=== PATIENT | male | born 1950 | race Two or more races ===

== ENCOUNTER 2016-12-17 22:36 | Inpatient (IN) | payer SELFPAY ==
[~2016-12-17] VITALS: Ht 175.3 cm; Wt 109.8 kg
[~2016-12-17 22:36] MED LIST: CALC-30 PO; IBUP1POW8; MULTCHW3 OR
[2016-12-17 23:21] LABS: Basophils # (auto) 0.1 uL; Basophils % (auto) 0.9 % (0.0-2.0); Eosinophils # (auto) 0.1 uL; Eosinophils % (auto) 1.3 % (0.0-7.0); Hematocrit 44.4 % (41.0-53.0); Lymphocytes % (auto) 27.7 % (10.0-50.0); Mean Corpuscular Hemoglobin 30.2 pg (28.0-32.0); Mean Corpuscular Hgb Conc. 33.8 g/dL (32.0-36.0); Mean Corpuscular Volume 89.6 fL (80.0-100.0); Monocytes # (auto) 0.5 uL; Monocytes % (auto) 7.3 % (0.0-12.0); Neutrophils # (auto) 4.6 uL; Neutrophils % (auto) 62.8 % (37.0-80.0); Nucleated Red Blood Cells % 0.1 %; Platelet Count (auto) 257 10^3/uL (140-450); Red Blood Cells 4.96 10^6/uL (4.5-5.90); Red Cell Distribution Width 14.8 % (11.8-14.3); White Blood Cell 7.3 10^3/uL (4.4-10.8)
[2016-12-17 23:44] LABS: Albumin 3.9 g/dL (3.4-5.0); BUN/Creatinine Ratio 16.1; Bilirubin, Total 0.4 mg/dL (0.2-1.0); Magnesium 2.4 mg/dL (1.6-2.6); Potassium 4.3 mmol/L (3.5-5.1); Total Protein 7.8 g/dL (6.4-8.2)
[2016-12-18] MEDS ORDERED: ENOXAPARIN SOD 100 MG/1 ML SYRINGE SC ONE (05:30)
[2016-12-18 06:32] LABS: Urine Bacteria NONE SEEN /hpf (None Seen); Urine Blood Negative /uL (Negative); Urine Specific Gravity 1.007 (1.001-1.035); Urine WBC <1 /hpf (0 - 3)
[2016-12-18] MEDS ORDERED: SODIUM CHLORIDE 0.9% 1,000 ML IV ONE (07:24)
[2016-12-18] MEDS ORDERED: ONDANSETRON HCL 4 MG/2 ML VIAL IV ONE (07:30)
[2016-12-18] MEDS ORDERED: MORPHINE SULFATE 10 MG/ML INJ 1ML SDV IV ONE (07:30)
[2016-12-18] MEDS ORDERED: ASPirin 325 MG TAB PO ONE (07:30)
[2016-12-18] MEDS ORDERED: LORazepam 0.5 MG TAB PO PRN (09:15)
[2016-12-18] MEDS ORDERED: HYDROcodone-ACET 5/325MG TAB PO PRN (09:15)
[2016-12-18] MEDS ORDERED: TEMAZEPAM 15 MG CAP PO PRN (09:15)
[2016-12-18] MEDS ORDERED: NITROGLYCERIN 0.4 MG SL TAB SL PRN (09:15)
[2016-12-18] MEDS ORDERED: ACETAMINOPHEN 500 MG TAB PO PRN (09:15)
[2016-12-18] MEDS ORDERED: PROMETHAZINE HCL 25 MG/ML 1ML IV PRN (09:15)
[2016-12-18] MEDS ORDERED: LACTULOSE 20Gm/30ML SOLN PO PRN (09:15)
[2016-12-18] MEDS ORDERED: MORPHINE SULFATE 10 MG/ML INJ 1ML SDV IV PRN ×2 (09:15)
[2016-12-18] MEDS: SODIUM CHLORIDE 0.9% 1,000 ML IV SCH ×2 (09:59→22:49)
[2016-12-18] MEDS: PANTOPRAZOLE 40 MG TAB PO SCH (10:45)
[2016-12-18] MEDS: METOPROLOL TARTRATE 25 MG TAB PO SCH ×2 (10:48→22:48)
[2016-12-18] MEDS: NITROGLYCERIN 0.2MG/HR TOPICAL PATCH TD SCH (10:48)
[2016-12-18 11:04] VITALS: BP 156/94
[2016-12-18] MEDS ORDERED: ASPI81CH43 PO (11:27)
[2016-12-18] MEDS ORDERED: OMEG1CAP59 PO (11:28)
[2016-12-18 13:42] LABS: CRP High Sensitivity 0.34 mg/dL (< 0.3)
[2016-12-18 16:35] VITALS: BP 99/57
[2016-12-18 22:00] VITALS: BP 115/65
[2016-12-18] MEDS: ATORVASTATIN 20 MG TAB PO SCH (22:48)
[2016-12-19 05:00] VITALS: BP 107/56
[2016-12-19 06:34] LABS: Cholesterol 195 mg/dL (< 200); HDL Cholesterol 34 mg/dL (40-59); LDL Cholesterol 137 mg/dL (< 100); Triglycerides 184 mg/dL (< 150)
[2016-12-19 09:00] VITALS: BP 109/56
[2016-12-19] MEDS: NITROGLYCERIN 0.2MG/HR TOPICAL PATCH TD SCH (10:00)
[2016-12-19] MEDS: ASPirin 81 mg TAB PO SCH (10:52)
[2016-12-19] MEDS: ENOXAPARIN SOD 40 MG/0.4 ML SYRINGE SC SCH (10:53)
[2016-12-19] MEDS: METOPROLOL TARTRATE 25 MG TAB PO SCH ×2 (10:53→22:09)
[2016-12-19] MEDS: PANTOPRAZOLE 40 MG TAB PO SCH (10:53)
[2016-12-19 13:00] VITALS: BP 118/70
[2016-12-19 17:00] VITALS: BP 149/83
[2016-12-19] MEDS: SODIUM CHLORIDE 0.9% 1,000 ML IV SCH (17:43)
[2016-12-19 22:00] VITALS: BP 122/69
[2016-12-19] MEDS: ATORVASTATIN 20 MG TAB PO SCH (22:09)
[2016-12-20] MEDS: SODIUM CHLORIDE 0.9% 1,000 ML IV SCH (01:01)
[2016-12-20 05:25] VITALS: BP 133/77
[2016-12-20 08:06] VITALS: BP 133/78
[2016-12-20] MEDS: NITROGLYCERIN 0.2MG/HR TOPICAL PATCH TD SCH (10:00)
[2016-12-20] MEDS: METOPROLOL TARTRATE 25 MG TAB PO SCH ×2 (10:03→21:38)
[2016-12-20] MEDS: ASPirin 81 mg TAB PO SCH (10:03)
[2016-12-20] MEDS: ENOXAPARIN SOD 40 MG/0.4 ML SYRINGE SC SCH (10:03)
[2016-12-20] MEDS: PANTOPRAZOLE 40 MG TAB PO SCH (10:04)
[2016-12-20 12:37] VITALS: BP 148/84
[2016-12-20] MEDS ORDERED: PANTOPRAZOLE 40 MG TAB PO ONE (14:15)
[2016-12-20 16:48] VITALS: BP 143/75
[2016-12-20] MEDS: ATORVASTATIN 20 MG TAB PO SCH (21:37)
[2016-12-20 22:00] VITALS: BP 133/78
[2016-12-21 05:00] VITALS: BP 121/74
[2016-12-21] MEDS ORDERED: ADENOSINE 92 MG in GIVE UN-DILUTED 0 ML IV STA (08:09)
[2016-12-21 09:09] VITALS: BP 115/72
[2016-12-21] MEDS: ASPirin 81 mg TAB PO SCH (09:21)
[2016-12-21] MEDS: PANTOPRAZOLE 40 MG TAB PO SCH (09:21)
[2016-12-21] MEDS: ENOXAPARIN SOD 40 MG/0.4 ML SYRINGE SC SCH (09:21)
[2016-12-21] MEDS: METOPROLOL TARTRATE 25 MG TAB PO SCH (09:22)
[2016-12-21] MEDS: NITROGLYCERIN 0.2MG/HR TOPICAL PATCH TD SCH (09:22)
[2016-12-21] MEDS ORDERED: PANTOPRAZOLE 40 MG TAB PO SCH (10:00)
[2016-12-21] MEDS ORDERED: PANT40T PO (12:24)
[2016-12-21] MEDS ORDERED: ATO40T PO (12:24)
[2016-12-21] MEDS ORDERED: ASPI81CH43 PO (12:24)
[2016-12-21] MEDS ORDERED: MET25T PO (12:24)
[2016-12-21 13:36] VITALS: BP 130/76
[2016-12-21] MEDS ORDERED: ATORVASTATIN 20 MG TAB PO SCH (22:00)
== END 2016-12-21 15:40 | disposition home or self-care (01) | DRG 392 ==
LOC: ER 22:42 → TELE 22:43 → TELE-E-ADS 12-18 10:31 → TELE-WESTW 12-18 11:59
PROVIDERS: ADMIT Internal Medicine; ATTEND Internal Medicine
DX: K29.70 Gastritis, unspecified, without bleeding (principal); I11.0 Hypertensive heart disease with heart failure; I50.9 Heart failure, unspecified; K21.9 Gastro-esophageal reflux disease without esophagitis; E78.5 Hyperlipidemia, unspecified; I25.5 Ischemic cardiomyopathy; I25.10 Atherosclerotic heart disease of native coronary artery without angina pectoris; Z95.5 Presence of coronary angioplasty implant and graft; Z91.19 Patient's noncompliance with other medical treatment and regimen; Z82.49 Family history of ischemic heart disease and other diseases of the circulatory system; Z79.899 Other long term (current) drug therapy; Z79.82 Long term (current) use of aspirin; I25.2 Old myocardial infarction; Z88.6 Allergy status to analgesic agent
CPT/HCPCS: 36415; 71010; 78452; 80053; 80061; 81001; 82550; 83735; 84484; 85025; 85379; 85652; 86141; 93005; 93017; 93306; 96361; 96372; 96374; 96375; J0153; J2405

== ENCOUNTER 2016-12-29 08:29 | Emergency (ER) | payer SELFPAY ==
[~2016-12-29 08:29] MED LIST changes: +ASPI81CH43 PO; +ATO40T PO; -CALC-30 PO; -IBUP1POW8; +MET25T PO; -MULTCHW3 OR; +OMEG1CAP59 PO; +PANT40T PO
== END 2016-12-29 08:45 | disposition left against medical advice (07) ==
LOC: ER 08:29
DX: R07.89 Other chest pain (principal); Z53.21 Procedure and treatment not carried out due to patient leaving prior to being seen by health care provider

== ENCOUNTER 2017-01-09 08:02 | Inpatient (IN) | payer SELFPAY ==
[~2017-01-09] VITALS: Ht 182.9 cm; Wt 107.6 kg
[2017-01-09] MEDS ORDERED: ASPirin 81 mg TAB PO ONE (08:15)
[2017-01-09] MEDS ORDERED: SODIUM CHLORIDE 0.9% 1,000 ML IV ONE (08:15)
[2017-01-09 08:59] LABS: Basophils # (auto) 0.1 uL; Basophils % (auto) 0.9 % (0.0-2.0); Eosinophils # (auto) 0.1 uL; Eosinophils % (auto) 1.5 % (0.0-7.0); Hematocrit 43.3 % (41.0-53.0); Hemoglobin 14.4 g/dL (13.5-17.5); Lymphocytes # (auto) 1.6 uL; Lymphocytes % (auto) 22.2 % (10.0-50.0); Mean Corpuscular Hgb Conc. 33.4 g/dL (32.0-36.0); Mean Corpuscular Volume 89.8 fL (80.0-100.0); Mean Platelet Volume 8.4 fL (6.9-10.8); Monocytes # (auto) 0.5 uL; Monocytes % (auto) 6.9 % (0.0-12.0); Neutrophils # (auto) 4.9 uL; Neutrophils % (auto) 68.5 % (37.0-80.0); Nucleated Red Blood Cells % 0.1 %; Platelet Count (auto) 217 10^3/uL (140-450); Red Cell Distribution Width 14.8 % (11.8-14.3); White Blood Cell 7.1 10^3/uL (4.4-10.8)
[2017-01-09 09:18] LABS: Urine Bilirubin Negative (Negative); Urine Blood Negative /uL (Negative); Urine Color Yellow (Yellow); Urine Glucose Normal (Normal); Urine Ketone Negative (Negative); Urine Nitrite Negative (Negative); Urine RBC <1 /hpf (0 - 3); Urine Squamous Epithelial Cell FEW /hpf (<5); Urine Urobilinogen Normal (Negative)
[2017-01-09 09:25] LABS: Albumin 3.8 g/dL (3.4-5.0); BUN/Creatinine Ratio 19.3; Bilirubin, Total 0.5 mg/dL (0.2-1.0); Calcium 8.8 mg/dL (8.5-10.1); Potassium 4.1 mmol/L (3.5-5.1); Total Protein 7.6 g/dL (6.4-8.2)
[2017-01-09 10:21] LABS: INR 0.97 (0.9-1.15); Partial Thromboplastin Time 25.9 sec (22.64-33.71); Prothrombin Time 10.6 sec (9.37-12.3)
[2017-01-09] MEDS ORDERED: LORazepam 0.5 MG TAB PO PRN (11:30)
[2017-01-09] MEDS ORDERED: TEMAZEPAM 15 MG CAP PO PRN (11:30)
[2017-01-09] MEDS ORDERED: HYDROcodone-ACET 5/325MG TAB PO PRN (11:30)
[2017-01-09] MEDS ORDERED: MORPHINE SULF INJ 2 MG/ML SYRINGE 1ML IV PRN (11:30)
[2017-01-09] MEDS ORDERED: HYDROmorphone HCL 2 MG/ML VL IV PRN (11:30)
[2017-01-09] MEDS ORDERED: LACTULOSE 20Gm/30ML SOLN PO PRN (11:30)
[2017-01-09] MEDS ORDERED: ACETAMINOPHEN 500 MG TAB PO PRN (11:30)
[2017-01-09] MEDS ORDERED: PROMETHAZINE HCL 25 MG/ML 1ML IV PRN (11:30)
[2017-01-09] MEDS ORDERED: NITROGLYCERIN 0.4 MG SL TAB SL PRN (11:30)
[2017-01-09] MEDS ORDERED: PANTOPRAZOLE 40 MG TAB PO ONE (11:45)
[2017-01-09] MEDS ORDERED: METOPROLOL TARTRATE 25 MG TAB PO ONE (11:45)
[2017-01-09] MEDS: SODIUM CHLORIDE 0.9% 1,000 ML IV SCH (11:59)
[2017-01-09 12:02] LABS: Amylase 42 U/L (25-115)
[2017-01-09] MEDS: ENOXAPARIN SOD 40 MG/0.4 ML SYRINGE SC SCH (12:14)
[2017-01-09] MEDS: NITROGLYCERIN 0.2MG/HR TOPICAL PATCH TD SCH (12:14)
[2017-01-09 16:38] VITALS: BP 137/79
[2017-01-09 16:45] VITALS: BP 137/79
[2017-01-09] MEDS ORDERED: PATIENTS OWN MEDICATION (Atorvastatin Calcium (Lipitor) 1 TAB) PO SCH ×2 (18:00)
[2017-01-09 20:00] VITALS: BP 97/57
[2017-01-09 22:00] VITALS: BP 97/57
[2017-01-09] MEDS ORDERED: ATORVASTATIN 20 MG TAB PO SCH (22:00)
[2017-01-09] MEDS: METOPROLOL TARTRATE 25 MG TAB PO SCH (22:00)
[2017-01-10] MEDS: SODIUM CHLORIDE 0.9% 1,000 ML IV SCH ×2 (00:40→14:00)
[2017-01-10 05:00] VITALS: BP 104/50
[2017-01-10 05:51] LABS: Cholesterol 127 mg/dL (< 200); HDL Cholesterol 42 mg/dL (40-59); LDL Cholesterol 77 mg/dL (< 100); Triglycerides 176 mg/dL (< 150)
[2017-01-10] MEDS ORDERED: ASPirin 81 mg TAB PO SCH (10:00)
[2017-01-10] MEDS ORDERED: PANTOPRAZOLE 40 MG TAB PO SCH (10:00)
[2017-01-10] MEDS: METOPROLOL TARTRATE 25 MG TAB PO SCH (10:00)
[2017-01-10] MEDS: NITROGLYCERIN 0.2MG/HR TOPICAL PATCH TD SCH (11:46)
[2017-01-10] MEDS: ENOXAPARIN SOD 40 MG/0.4 ML SYRINGE SC SCH (12:01)
[2017-01-10 13:00] VITALS: BP 125/65
[2017-01-10 16:18] VITALS: BP 113/59
[2017-01-10 17:24] VITALS: BP 113/59
== END 2017-01-10 17:08 | disposition home or self-care (01) | DRG 313 ==
LOC: ER 08:02 → TELE 08:03 → TELE-WESTW 15:56
PROVIDERS: ADMIT Internal Medicine; ATTEND Internal Medicine
DX: R07.9 Chest pain, unspecified (principal); I25.10 Atherosclerotic heart disease of native coronary artery without angina pectoris; E66.9 Obesity, unspecified; K21.9 Gastro-esophageal reflux disease without esophagitis; E78.5 Hyperlipidemia, unspecified; I10 Essential (primary) hypertension; I25.2 Old myocardial infarction; Z82.49 Family history of ischemic heart disease and other diseases of the circulatory system; Z95.5 Presence of coronary angioplasty implant and graft; Z79.899 Other long term (current) drug therapy; Z68.32 Body mass index [BMI] 32.0-32.9, adult
CPT/HCPCS: 36415; 71020; 80053; 80061; 80307; 81001; 82150; 82550; 83690; 83735; 84443; 84484; 85025; 85379; 85610; 85652; 85730; 86141; 93005; 94761; 96360; 96361; 96372

== ENCOUNTER 2018-07-23 17:22 | Emergency (ER) | payer MEDICAID ==
[~2018-07-23] VITALS: Ht 182.9 cm; Wt 110.7 kg
[2018-07-23 17:56] VITALS: BP 131/79
== END 2018-07-24 | disposition left against medical advice (07) ==
LOC: ER 17:27
DX: R79.9 Abnormal finding of blood chemistry, unspecified (principal); Z53.21 Procedure and treatment not carried out due to patient leaving prior to being seen by health care provider
CPT/HCPCS: 93005

== ENCOUNTER 2020-03-21 04:13 | Inpatient (IN) | payer MEDICAID ==
[~2020-03-21] VITALS: Ht 182.9 cm; Wt 110.1 kg
[2020-03-21 05:19] LABS: Basophils # (auto) 0.1 10 ^3/uL (0-0.2); Eosinophils # (auto) 0.1 10 ^3/uL (0-0.8); Eosinophils % (auto) 1.6 % (0.0-7.0); Hematocrit 42.2 % (41.0-53.0); Hemoglobin 14.8 g/dL (13.5-17.5); Lymphocytes # (auto) 2.2 10 ^3/uL (0.4-5.4); Mean Corpuscular Hemoglobin 30.6 pg (28.0-32.0); Mean Corpuscular Volume 87.4 fL (80.0-100.0); Monocytes # (auto) 0.7 10 ^3/uL (0-1.3); Monocytes % (auto) 8.6 % (0.0-12.0); Neutrophils # (auto) 4.7 10 ^3/uL (1.6-8.6); Neutrophils % (auto) 60.8 % (37.0-80.0); Nucleated Red Blood Cells % 0.1 %; Platelet Count (auto) 259 10^3/uL (140-450); Red Blood Cells 4.83 10^6/uL (4.5-5.90); Red Cell Distribution Width 14.7 % (11.8-14.3); White Blood Cell 7.7 10^3/uL (4.4-10.8)
[2020-03-21 05:33] LABS: INR 0.98 (0.9-1.15); Partial Thromboplastin Time 26.4 sec (23.0-31.2)
[2020-03-21 05:39] LABS: Albumin 3.4 g/dL (3.4-5.0); Calcium 8.5 mg/dL (8.5-10.1); Potassium 3.7 mmol/L (3.5-5.1)
[2020-03-21 05:45] LABS: BUN/Creatinine Ratio 11.7; Bilirubin, Total 0.4 mg/dL (0.2-1.0); Total Protein 7.2 g/dL (6.4-8.2)
[2020-03-21] MEDS ORDERED: ASPirin 81 mg TAB PO ONE (06:00)
[2020-03-21] MEDS ORDERED: MORPHINE SULFATE 4 MG/ML SYR/VIAL IV ONE (07:30)
[2020-03-21] MEDS ORDERED: ENOXAPARIN SOD 120 MG/0.8 ML SYRINGE SC ONE (07:30)
[2020-03-21] MEDS ORDERED: METOPROLOL TARTRATE 25 MG TAB PO ONE (07:30)
[2020-03-21] MEDS ORDERED: ONDANSETRON HCL 4 MG/2 ML VIAL IV ONE (07:30)
[2020-03-21] MEDS ORDERED: MORPHINE SULF INJ 2 MG/ML SYRINGE 1ML IV PRN ×2 (09:15→10:15)
[2020-03-21] MEDS ORDERED: NITROGLYCERIN 0.4 MG SL TAB SL PRN (09:15)
[2020-03-21] MEDS ORDERED: TEMAZEPAM 15 MG CAP PO PRN (10:15)
[2020-03-21] MEDS ORDERED: ALBUTEROL SULF HFA 90MCG INH 200DOSE IN PRN (10:15)
[2020-03-21] MEDS ORDERED: ONDANSETRON HCL 4 MG/2 ML VIAL IV PRN (10:15)
[2020-03-21] MEDS ORDERED: ACETAMINOPHEN 500 MG TAB PO PRN (10:15)
[2020-03-21] MEDS ORDERED: DEXTROSE (50%) 50ML SYRG IV PRN (10:15)
[2020-03-21] MEDS ORDERED: traMADol HCL 50 MG TAB PO PRN (10:15)
[2020-03-21] MEDS: SODIUM CHLORIDE 0.9% 1,000 ML IV SCH ×2 (11:14→23:35)
[2020-03-21 11:24] LABS: CRP High Sensitivity 0.47 mg/dL (< 0.3)
[2020-03-21] MEDS: ACCU-CHEK COMFORT CURVE STRIP VI SCH ×3 (13:24→22:00)
[2020-03-21] MEDS: ATORVASTATIN 20 MG TAB PO SCH (18:27)
[2020-03-21] MEDS ORDERED: BUDESONIDE (INHALATION) 180 MCG IH IN SCH (22:00)
[2020-03-21] MEDS: METOPROLOL TARTRATE 25 MG TAB PO SCH (22:32)
[2020-03-21] MEDS: DOXYCYCLINE 100MG/250ML 250 ML IV SCH (22:32)
[2020-03-21] MEDS: ENOXAPARIN SOD 40 MG/0.4 ML SYRINGE SC SCH (22:33)
[2020-03-22 03:45] VITALS: BP 175/85
[2020-03-22 05:30] VITALS: BP 175/85
[2020-03-22] MEDS ORDERED: INFLUENZA QUAD 2020-2021 0.5 ML SYRG IM ONE (06:00)
[2020-03-22] MEDS ORDERED: PNEUMOCOCCAL VACC POLYS 25 MCG/0.5 ML VIAL IM ONE (06:00)
[2020-03-22] MEDS: ACCU-CHEK COMFORT CURVE STRIP VI SCH (06:54)
[2020-03-22 08:00] VITALS: BP 148/80
[2020-03-22 08:31] LABS: Basophils # (auto) 0.1 10 ^3/uL (0-0.2); Basophils % (auto) 0.9 % (0.0-2.0); Eosinophils # (auto) 0.2 10 ^3/uL (0-0.8); Eosinophils % (auto) 2.3 % (0.0-7.0); Hematocrit 43.5 % (41.0-53.0); Hemoglobin 14.9 g/dL (13.5-17.5); Lymphocytes % (auto) 30.1 % (10.0-50.0); Mean Corpuscular Hemoglobin 30.2 pg (28.0-32.0); Mean Corpuscular Hgb Conc. 34.2 g/dL (32.0-36.0); Mean Corpuscular Volume 88.3 fL (80.0-100.0); Monocytes # (auto) 0.5 10 ^3/uL (0-1.3); Monocytes % (auto) 7.5 % (0.0-12.0); Neutrophils % (auto) 59.2 % (37.0-80.0); Nucleated Red Blood Cells % 0.1 %; Platelet Count (auto) 209 10^3/uL (140-450); Red Blood Cells 4.93 10^6/uL (4.5-5.90); Red Cell Distribution Width 14.6 % (11.8-14.3); White Blood Cell 6.7 10^3/uL (4.4-10.8)
[2020-03-22 08:48] LABS: INR 1.04 (0.9-1.15); Partial Thromboplastin Time 29.1 sec (23.0-31.2)
[2020-03-22] MEDS ORDERED: LIDOCAINE 2%HCL (LOCAL ANESTH.) INJ 20ML MDV ONE (08:48)
[2020-03-22 08:51] LABS: Albumin 3.3 g/dL (3.4-5.0); Calcium 8.6 mg/dL (8.5-10.1); Potassium 4.3 mmol/L (3.5-5.1)
[2020-03-22 08:59] LABS: BUN/Creatinine Ratio 14.1; Bilirubin, Total 0.6 mg/dL (0.2-1.0); Total Protein 7.2 g/dL (6.4-8.2)
[2020-03-22] MEDS ORDERED: VERAPAMIL 2.5MG/ML INJ 2ML VIAL IV ONE (09:40)
[2020-03-22] MEDS ORDERED: ANGIOMAX 250 MG VIAL IV ONE ×2 (09:40→10:45)
[2020-03-22] MEDS ORDERED: fentaNYL CITRATE 100 MCG/2 ML VL ONE (09:40)
[2020-03-22] MEDS ORDERED: HEPARIN SODIUM (PORCINE) 5000 UNITS/ML 1ML VIAL ONE (09:40)
[2020-03-22] MEDS ORDERED: MIDAZOLAM HCL 1MG/1ML-2 ML VIAL ONE (09:41)
[2020-03-22] MEDS ORDERED: SODIUM CHL 0.9% 0 ML ONE (09:41)
[2020-03-22] MEDS: ENOXAPARIN SOD 40 MG/0.4 ML SYRINGE SC SCH ×2 (10:00→22:34)
[2020-03-22] MEDS: ASPirin 81 mg TAB PO SCH (10:00)
[2020-03-22] MEDS ORDERED: IOHEXOL 350 MG/ML 100ML IJ ONE ×3 (10:04→10:41)
[2020-03-22] MEDS ORDERED: SODIUM CHL 0.9% 50 ML ONE (10:45)
[2020-03-22] MEDS ORDERED: ASPirin 81 mg TAB ONE (10:49)
[2020-03-22] MEDS ORDERED: CLOPIDOGREL 300 MG TAB ONE (10:49)
[2020-03-22] MEDS ORDERED: ASPirin 325 MG TAB ONE (10:52)
[2020-03-22 13:40] VITALS: BP 140/100
[2020-03-22] MEDS: ZINC SULFATE 220mg CAP or TAB PO SCH (14:00)
[2020-03-22] MEDS: DOXYCYCLINE 100MG/250ML 250 ML IV SCH ×2 (14:00→22:31)
[2020-03-22] MEDS: PANTOPRAZOLE 40 MG TAB PO SCH (14:01)
[2020-03-22] MEDS: METOPROLOL TARTRATE 25 MG TAB PO SCH ×2 (14:01→22:34)
[2020-03-22] MEDS: ISOSORBIDE MONONITRATE ER 60 MG TAB PO SCH (14:01)
[2020-03-22] MEDS: SODIUM CHLORIDE 0.9% 1,000 ML IV SCH (14:02)
[2020-03-22] MEDS: CHOLECALCIFEROL (VITD3) 2,000 UNIT CAP/TAB PO SCH (14:02)
[2020-03-22] MEDS: ASCORBIC ACID 1,000 MG TAB PO SCH (14:02)
[2020-03-22 16:00] VITALS: BP 118/42
[2020-03-22] MEDS: ATORVASTATIN 20 MG TAB PO SCH (18:31)
[2020-03-23 01:08] VITALS: BP 100/59
[2020-03-23] MEDS: SODIUM CHLORIDE 0.9% 1,000 ML IV SCH ×2 (02:15→15:35)
[2020-03-23 05:00] VITALS: BP 97/55
[2020-03-23 06:40] LABS: Potassium 3.9 mmol/L (3.5-5.1)
[2020-03-23 06:49] LABS: Basophils # (auto) 0 10 ^3/uL (0-0.2); Basophils % (auto) 0.4 % (0.0-2.0); Eosinophils # (auto) 0.2 10 ^3/uL (0-0.8); Eosinophils % (auto) 2.4 % (0.0-7.0); Hematocrit 41.5 % (41.0-53.0); Hemoglobin 13.9 g/dL (13.5-17.5); Lymphocytes # (auto) 1.3 10 ^3/uL (0.4-5.4); Lymphocytes % (auto) 15.8 % (10.0-50.0); Mean Corpuscular Hemoglobin 29.7 pg (28.0-32.0); Mean Corpuscular Hgb Conc. 33.6 g/dL (32.0-36.0); Mean Corpuscular Volume 88.5 fL (80.0-100.0); Monocytes # (auto) 0.6 10 ^3/uL (0-1.3); Monocytes % (auto) 7.4 % (0.0-12.0); Neutrophils # (auto) 6.3 10 ^3/uL (1.6-8.6); Nucleated Red Blood Cells % 0.1 %; Platelet Count (auto) 214 10^3/uL (140-450); Red Blood Cells 4.69 10^6/uL (4.5-5.90); Red Cell Distribution Width 14.5 % (11.8-14.3); White Blood Cell 8.5 10^3/uL (4.4-10.8)
[2020-03-23 07:17] LABS: BUN/Creatinine Ratio 16.5; Calcium 8.6 mg/dL (8.5-10.1)
[2020-03-23 08:00] VITALS: BP 116/63
[2020-03-23] MEDS ORDERED: CLOPIDOGREL BISULFATE 75 MG TAB PO SCH (10:00)
[2020-03-23] MEDS ORDERED: LISINOPRIL 5 MG TAB PO SCH (10:00)
[2020-03-23] MEDS: ENOXAPARIN SOD 40 MG/0.4 ML SYRINGE SC SCH (10:00)
[2020-03-23] MEDS: METOPROLOL TARTRATE 25 MG TAB PO SCH (10:00)
[2020-03-23] MEDS: DOXYCYCLINE 100MG/250ML 250 ML IV SCH (10:08)
[2020-03-23] MEDS: CHOLECALCIFEROL (VITD3) 2,000 UNIT CAP/TAB PO SCH (10:12)
[2020-03-23] MEDS: ASCORBIC ACID 1,000 MG TAB PO SCH (10:13)
[2020-03-23] MEDS: PANTOPRAZOLE 40 MG TAB PO SCH (10:13)
[2020-03-23] MEDS: ISOSORBIDE MONONITRATE ER 60 MG TAB PO SCH (10:14)
[2020-03-23] MEDS: ZINC SULFATE 220mg CAP or TAB PO SCH (10:15)
[2020-03-23] MEDS: ASPirin 81 mg TAB PO SCH (10:15)
[2020-03-23 15:29] VITALS: BP 108/60
[2020-03-23] MEDS ORDERED: INFLUENZA QUAD 2020-2021 0.5 ML SYRG IM ONE (16:24)
[2020-03-23] MEDS ORDERED: PNEUMOCOCCAL VACC POLYS 25 MCG/0.5 ML VIAL IM ONE (16:45)
[2020-03-23 17:20] VITALS: BP 125/70
== END 2020-03-23 16:50 | disposition home or self-care (01) | DRG 174 ==
LOC: ER 04:13 → TELE 04:14 → TELE-CENTR 03-22 03:11
PROVIDERS: ADMIT Internal Medicine; ATTEND Internal Medicine
PROC: 027034Z Dilation of Coronary Artery, One Artery with Drug-eluting Intraluminal Device, Percutaneous Approach (ICD-10-PCS; principal; 2020-03-22)
PROC: 4A023N7 Measurement of Cardiac Sampling and Pressure, Left Heart, Percutaneous Approach (ICD-10-PCS; 2020-03-22)
PROC: B211YZZ Fluoroscopy of Multiple Coronary Arteries using Other Contrast (ICD-10-PCS; 2020-03-22)
PROC: B215YZZ Fluoroscopy of Left Heart using Other Contrast (ICD-10-PCS; 2020-03-22)
DX: I21.4 Non-ST elevation (NSTEMI) myocardial infarction (principal); E66.9 Obesity, unspecified; E78.5 Hyperlipidemia, unspecified; K21.9 Gastro-esophageal reflux disease without esophagitis; I10 Essential (primary) hypertension; I25.10 Atherosclerotic heart disease of native coronary artery without angina pectoris; I25.2 Old myocardial infarction; Z20.822 Contact with and (suspected) exposure to COVID-19; Z82.49 Family history of ischemic heart disease and other diseases of the circulatory system; Z79.02 Long term (current) use of antithrombotics/antiplatelets; Z68.32 Body mass index [BMI] 32.0-32.9, adult; Z23 Encounter for immunization
CPT/HCPCS: 36415; 71045; 80048; 80053; 80061; 82550; 82962; 83036; 83880; 84443; 84484; 85025; 85379; 85610; 85652; 85730; 86141; 87426; 93005; 93306; 96365; 96372; 96375; 99152; 99153; 99291; C1874; C1887; G0378; J2250; J2405; J3490

== ENCOUNTER 2020-06-15 13:18 | Emergency (ER) | payer MEDICAID ==
[~2020-06-15] VITALS: Ht 175.3 cm; Wt 108.9 kg
[2020-06-15 13:23] VITALS: BP 159/87
[2020-06-15] MEDS ORDERED: cefTRIAXone SOD 1,000 MG VL IM ONE (14:30)
[2020-06-15] MEDS ORDERED: LIDOCAINE 1% HCL (LOCAL ANESTH.) INJ 20ML MDV IJ ONE (14:45)
== END 2020-06-15 15:05 | disposition home or self-care (01) ==
LOC: ER 13:18
DX: J03.90 Acute tonsillitis, unspecified (principal); J20.9 Acute bronchitis, unspecified; E78.5 Hyperlipidemia, unspecified; I10 Essential (primary) hypertension; I25.2 Old myocardial infarction
CPT/HCPCS: 71046; 96372; 99283; J0696; J2001

== ENCOUNTER 2021-11-12 15:36 | Emergency (ER) | payer MEDICAID ==
[~2021-11-12] VITALS: Ht 177.8 cm; Wt 98.7 kg
[2021-11-12 17:06] VITALS: BP 129/80
[2021-11-12] MEDS ORDERED: ACET-1158 PO (17:16)
[2021-11-12] MEDS ORDERED: LIDOCAINE 1% HCL (LOCAL ANESTH.) INJ 20ML MDV ONE (17:16)
[2021-11-12] MEDS ORDERED: CEPH-510 PO (17:16)
== END 2021-11-12 17:53 | disposition home or self-care (01) ==
LOC: ER 15:36
DX: S61.411A Laceration without foreign body of right hand, initial encounter (principal); I10 Essential (primary) hypertension; I25.2 Old myocardial infarction; I25.10 Atherosclerotic heart disease of native coronary artery without angina pectoris; E78.5 Hyperlipidemia, unspecified; Z79.82 Long term (current) use of aspirin; Z79.899 Other long term (current) drug therapy; W26.8XXA Contact with other sharp object(s), not elsewhere classified, initial encounter; Y93.89 Activity, other specified; Y92.89 Other specified places as the place of occurrence of the external cause; Y99.8 Other external cause status
CPT/HCPCS: 12002; 99283; J2001